=== PATIENT | male | born 1960 | race Caucasian/White ===

== ENCOUNTER 2020-02-27 16:22 | Outpatient (CLI) | payer BC, SELFPAY ==
--- NOTE | ~2020-02-27 | XR_ITS ---
XR abdomen/kub 1V 02/27/2020 16:46 INDICATION: Right ureteral stone. TECHNIQUE: KUB COMPARISON: None FINDINGS: Bowel gas pattern is normal. There is no evidence of free air, mass, organomegaly, ascites or obstruction. No abnormal calculi are seen. The bones appear intact. IMPRESSION: 1: No acute abdominal abnormality identified. No suspected urolithiasis. Reviewed, dictated and finalized at location A.
== END 2020-02-27 16:23 | disposition home or self-care (01) ==
LOC: ANHIMG 16:24
PROVIDERS: PCP Family Medicine Adolescent Medicine; Visit Provider Urology
DX: N20.1 Calculus of ureter (principal)
CPT/HCPCS: 74018

== ENCOUNTER → 2022-11-03 07:03 | Outpatient (CLI) | payer BC, SELFPAY ==
--- NOTE | ~2022-11-03 | MR_ITS ---
MRI of the left elbow CLINICAL HISTORY: Pain TECHNIQUE: Proton-density and proton-density fat-sat images were performed in the axial, coronal, and sagittal planes. FINDINGS: Ulnar collateral ligament is intact. Radial collateral ligament and the lateral ulnar colla teral ligament are intact. There is moderate grade partial tearing at the common extensor tendon orig in. Common flexor tendon origin is intact. Bone marrow signals are unremarkable. No significant elbow joint effusion. No articular or chondral a bnormality evident at the elbow joint. Biceps, brachialis, and triceps tendons are intact. Visualized muscle signals are unremarkable. There is minimal subcutaneous soft tissue edema at the medial aspect of the elbow, nonspecific. No abnorma l signal in the ulnar nerve evident. IMPRESSION: Moderate partial tearing at the common extensor tendon origin. Minimal nonspecific subcutaneous soft tissue edema at the medial aspect of the elbow. Reviewed, dictated and finalized at [facility]. [employer] PAYABLE PAYROLL COORDINATOR
== END ==
PROVIDERS: PCP Family Medicine Adolescent Medicine
DX: M25.522 Pain in left elbow (principal); S46.812A Strain of other muscles, fascia and tendons at shoulder and upper arm level, left arm, initial encounter; T14.90XA Injury, unspecified, initial encounter
CPT/HCPCS: 73221

== ENCOUNTER 2024-03-11 10:17 | Outpatient (CLI) | payer BC, SELFPAY ==
--- NOTE | ~2024-03-11 | XR_ITS ---
EXAMINATION: XR chest 2V 03/11/2024 10:26 INDICATION: Chest pain PROCEDURE: 2 view chest COMPARISON: 05/25/2008 FINDINGS: The lungs are clear. The lungs are hyperinflated which is consistent with, but not diagnost ic of chronic obstructive pulmonary disease. The cardiomediastinal silhouette is within normal limits . There are no pleural effusions. There is no pneumothorax suspected. IMPRESSION: 1: NO ACUTE CARDIOPULMONARY DISEASE. Reviewed, dictated and finalized at location B.
== END 2024-03-11 10:18 ==
LOC: MICIMG 10:19
PROVIDERS: PCP Family Medicine Adolescent Medicine; Visit Provider Nurse Practitioner Family
DX: R07.89 Other chest pain (principal)
CPT/HCPCS: 71046

== ENCOUNTER 2024-04-26 08:02 | Outpatient (CLI) | payer BC, SELFPAY ==
--- NOTE | ~2024-04-26 | NM_ITS ---
EXAMINATION: NM dyana stress w perfusion DATE: 04/26/2024 10:20 INDICATION: Other chest pain. TECHNIQUE: Rest images were obtained following intravenous administration of 10.3 mCi Tc99m tetrofosm in (Myoview). The patient was infused intravenously with Lexiscan (regadenoson). Then, 33.2 mCi Tc99m tetrofosmin (Myoview) was administered intravenously, and stress images were obtained. Data was terrell nstructed into short axis and horizontal and vertical long axis SPECT images. Gated SPECT images were also obtained. COMPARISON: None. FINDINGS: There is no definite reversible or fixed perfusion abnormality to suggest ischemia or infar ction. There is no segmental wall motion abnormality. Left ventricular ejection fraction measures 6 2%. IMPRESSION: 1. No definite ischemia or infarct. 2. Normal left ventricular ejection fraction measuring 62%. Reviewed, dictated and finalized at location A.
--- NOTE | 2024-04-26 08:10 | EST_ITS ---
Patient Info Name: Gabriel Brower Age: 63 years : 1960 Gender: Male Ht: 72 in Wt: 205 lbs BSA: 2.19 m2 HR: 68 bpm BP: 135 / 80 mmHg Heart Rhythm: Sinus Rhythm Exam Date: 04/26/2024 8:59 AM Exam Location: Echo Lab Patient Status: Outpatient Admit Date: 04/26/2024 Staff Ordering Physician: Ashlyn Rodarte APRN Attending Provider: Ashlyn Rodarte APRN Exercise Technologist: More Schneider CT Exercise Physician: Jose M Santiago DO Exam Type: CA stress dyana w NM Study Info Indications R07.89 - Other chest pain A regadenoson stress test was performed. Summary 1. 1. Negative lexiscan stress test for ischemic ST changes by ECG criteria. 2. 2. Stable hemodynamics throughout the test. 3. 3. Nuclear scan to follow and will be reported separately. Please correlate with it. 4. 4. Patient informed of the above results. Protocol: Lexiscan Stress ECG Details Stage: REST Duration (min): 2 min : 11 sec HR (bpm): 68 SBP (mmHg): 135 DBP (mmHg): 80 Stage: REST Duration (min): 6 min : 29 sec HR (bpm): 69 SBP (mmHg): 135 DBP (mmHg): 80 Stage: STAGE 1 Duration (min): 1 min : 0 sec HR (bpm): 92 SBP (mmHg): 132 DBP (mmHg): 81 Stage: RECOVERY Duration (min): 1 min : 0 sec HR (bpm): 91 SBP (mmHg): 132 DBP (mmHg): 81 Stage: RECOVERY Duration (min): 2 min : 0 sec HR (bpm): 87 SBP (mmHg): 132 DBP (mmHg): 81 Stage: RECOVERY Duration (min): 3 min : 0 sec HR (bpm): 89 SBP (mmHg): 108 DBP (mmHg): 73 Stage: RECOVERY Duration (min): 3 min : 30 sec HR (bpm): 79 SBP (mmHg): 108 DBP (mmHg): 73 Rest HR: 69 bpm Peak HR: 101 bpm Rest Sys BP: 135 mmHg Peak Sys BP: 132 mmHg Max Pred HR: 157 bpm % Max Pred HR: 64 % Target HR: 133 bpm Max RPP: 13,332 bpm*mmHg Termination Reason: Completed protocol Cardiac Symptoms: Shortness of breath Total Time: 1 min : 0 sec Rest Bee BP: 80 mmHg Peak Bee BP: 81 mmHg Total Dose: 0.4 mg Resting ECG Sinus rhythm, IRBBB. Stress ECG No ST changes. Arrhythmias None. Report Signatures
== END 2024-04-26 08:03 | disposition home or self-care (01) ==
PROVIDERS: PCP Family Medicine Adolescent Medicine; Visit Provider Nurse Practitioner Family
DX: R07.89 Other chest pain (principal)
CPT/HCPCS: 78452; 93017; A9502; J2785

== ENCOUNTER 2024-05-13 08:10 | Outpatient (CLI) | payer BC, SELFPAY ==
--- NOTE | 2024-05-13 16:07 | WPDPFTINT ---
PFT Procedure Performed PFT Procedure Performed Spirometry with Pre/Post Bronchodilator Plethysmography (Lung Vol) Diffusing Cap (DLCO) Flow Vol Loop PFT Interpretation This is a pulmonary function test with pre and post-bronchodilator spirometry, plethysmography and diffusing capacity. The test was performed and results interpreted in accordance with the 2019 and 2005 ATS/ERS Task Force guidelines respectively using the Global Lung Function Initiative-2012 reference equations. Patient demonstrated good effort and cooperation. Reproducibility criteria were met. The quality of the pre bronchodilator spirometry maneuver was Grade A and post bronchodilator spirometry maneuver was Grade A. Findings: Spirometry: The contour the inspiratory and expiratory flow tracing are normal. The pre bronchodilator FVC is 4.77 L, 116% predicted. The pre bronchodilator FEV1 is 3.42 L, 108% predicted. The pre bronchodilator FEV1: FVC ratio 72%. The post bronchodilator FVC is 4.63 L, representing a 3% decrease. The post bronchodilator FEV1 is 3.56 L, representing a 4% increase. The post bronchodilator FEV1: FVC ratio 77%. Plethysmography: The total lung capacity is 6.90 L, 106% predicted. The functional residual capacity is 3.66 L, 101% predicted. The residual volume is 2.13 L, 95% predicted. Diffusing capacity: The diffusing capacity unadjusted for hemoglobin and carboxyhemoglobin is 35.2, 123% predicted. The diffusing capacity adjusted for alveolar volume is 5.68, 141% predicted. Impression: The spirometry is normal without evidence of an obstructive abnormality. There is no significant improvement after inhaling a single dose of albuterol. The lung volumes are normal. The diffusing capacity unadjusted for hemoglobin and carboxyhemoglobin is normal and is elevated when adjusted for alveolar volume. There are no prior studies for comparison
== END 2024-05-13 08:11 | disposition home or self-care (01) ==
PROVIDERS: PCP Family Medicine Adolescent Medicine; Visit Provider Nurse Practitioner Family
DX: R05.9 Cough, unspecified (principal); R07.89 Other chest pain
CPT/HCPCS: 94060; 94726; 94729

== ENCOUNTER 2024-08-12 09:16 | Outpatient (CLI) | payer BC, SELFPAY ==
--- NOTE | ~2024-08-12 | XR_ITS ---
EXAMINATION: XR lumbar spine 2-3V DATE: 08/12/2024 09:33 INDICATION: Low back pain, unspecified. TECHNIQUE: 3 views of lumbar spine including standing views were obtained. COMPARISON: None. FINDINGS: There is 8 degrees levocurvature of thoracolumbar spine. Vertebral body heights are normal. There is mildly decreased disc height at L4-L5. There is multilevel severe facet joint osteoarthriti s. IMPRESSION: 1. Mild lumbar spondylosis. Reviewed, dictated and finalized at location A. TEACHER IMPRESSION: 1. Mild lumbar spondylosis.
== END 2024-08-12 09:17 | disposition home or self-care (01) ==
PROVIDERS: PCP Family Medicine Adolescent Medicine; Visit Provider Family Medicine Adolescent Medicine
DX: M47.816 Spondylosis without myelopathy or radiculopathy, lumbar region (principal)
CPT/HCPCS: 72100

== ENCOUNTER 2024-12-27 08:09 | Outpatient (CLI) | payer BC, OTHER, SELFPAY ==
--- NOTE | ~2024-12-27 | MR_ITS ---
MRI of the left knee Clinical history: Pain Technique: Coronal proton density and proton density-weighted images, sagittal proton-density and T2 fat-sat images, and axial proton-density fat-saturated images were acquired. Findings: Anterior and posterior cruciate ligaments are intact. Medial collateral ligament and the la teral collateral ligament complex are intact. Popliteus tendon is intact. There is complex tearing of the posterior horn and body of the medial meniscus. There is probable sasha tical tear of the posterior horn of the lateral meniscus. 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 There is patchy moderate cynthia dromalacia extensively involving the medial femoral condyle. There is focal grade 4 chondral lesion a t the lateral tibial plateau. There is moderate chondromalacia at the lateral joint line. Minimal tri compartmental osteophytes are present. Extensor mechanism intact. Small joint effusion present. No significant Early's cyst. Impression: Complex tearing of the posterior horn and body of medial meniscus. Probable vertical tear of the posterior horn of the lateral meniscus. Tricompartmental degenerative change, as detailed above. Small joint effusion. Reviewed, dictated and finalized at location . Impression: Complex tearing of the posterior horn and body of medial meniscus. Probable vertical tear of the posterior horn of the lateral meniscus. Tricompartmental degenerative change, as detailed above. Small joint effusion.
== END 2024-12-27 08:10 | disposition home or self-care (01) ==
PROVIDERS: PCP Family Medicine Adolescent Medicine
DX: S83.272A Complex tear of lateral meniscus, current injury, left knee, initial encounter (principal); S83.232A Complex tear of medial meniscus, current injury, left knee, initial encounter; X58.XXXA Exposure to other specified factors, initial encounter
CPT/HCPCS: 73721